=== PATIENT | female | born 1935 | race Native Hawaiian/Other Pacific Islander ===

== ENCOUNTER → 2017-01-21 | Outpatient (CLI) | payer MEDICARE, OTHER ==
[~2017-01-21] MED LIST: AMLO5 PO; ATOR20TA15 PO; COMB0.2S EACH EYE; COMB0.2S RIGHT EYE; COUM5TAB PO; DIFL0.0512 RIGHT EYE; DIGO0.25 PO; DILT31TA PO; LACTCAP8 PO; METO-309 PO
[2017-01-21 11:54] LABS: HEMATOCRIT 39.2 % (35.0-46.0); MEAN CELL VOLUME 85.6 FL (80.0-100.0); MEAN CORPUSCULAR HEMOGLOBIN 28.6 PG (27.0-34.0); MEAN CORPUSCULAR HGB CONC 33.3 % (32.0-36.0); PLATELET COUNT 170 TH/MM3 (150-450); RED BLOOD COUNT 4.57 MIL/MM3 (4.00-5.30); RED CELL DISTRIBUTION WIDTH 13.9 % (11.6-17.2); REVIEW FLAG FINAL; WHITE BLOOD COUNT 5.3 TH/MM3 (4.0-11.0)
[2017-01-21 12:09] LABS: ANION GAP 5 MEQ/L (5-15); AST (GOT) 18 U/L (15-37); BICARBONATE 28.5 MEQ/L (21.0-32.0); BLOOD UREA NITROGEN 15 MG/DL (7-18); CHLORIDE 103 MEQ/L (98-107); GLOMERULAR FILTRATION RATE 65 ML/MIN (>89); GLUCOSE,FASTING 154 MG/DL (74-99); POTASSIUM 4.5 MEQ/L (3.5-5.1); SODIUM (NA) 136 MEQ/L (136-145)
[2017-01-21 12:10] LABS: ALT (GPT) 22 U/L (10-53)
[2017-01-21 12:18] LABS: ALKALINE PHOSPHATASE 84 U/L (45-117); HDL CHOLESTEROL 47.5 MG/DL (40.0-60.0); LDL CHOLESTEROL 65 MG/DL (0-99); TOTAL BILIRUBIN ADULT 0.6 MG/DL (0.2-1.0); TRANSFERRIN IRON PROFILE 240 MG/DL (200-360)
== END ==
LOC: ELAB 08:48
PROVIDERS: ATTEND Internal Medicine
DX: I48.91 Unspecified atrial fibrillation (principal); I10 Essential (primary) hypertension; E78.5 Hyperlipidemia, unspecified; R53.83 Other fatigue
CPT/HCPCS: 36415; 80053; 80061; 83540; 83550; 84443; 85027

== ENCOUNTER 2017-02-24 20:45 | Emergency (ER) | payer MEDICARE, OTHER ==
[~2017-02-24] VITALS: Ht 154.9 cm; Wt 80.0 kg
[2017-02-24 20:48] VITALS: BP 173/87; PULSE 95; RESP 18; TEMP 98.6; O2SAT 98
--- NOTE | 2017-02-24 22:10 | PD ---
Physical Exam Date Seen by Provider: Feb 24, 2017 Time Seen by Provider: 22:08 Data Data Last Documented VS Vital Signs Date Time Temp Pulse Resp B/P (MAP) Pulse Ox O2 Delivery O2 Flow Rate FiO2 02/24/17 20:48 98.6 95 18 173/87 (115) 98 MDM Supervised Visit with JON: No Narrative Course 81 YO F with complaint of cough, congestion, SOB x 2 days. Endorses + LE edema. Denies hx CHF. ---F/C, N/V/D. Hx A fib, on Eliquis. Vitals reviewed. Patient seen in triage, awaiting bed placement. Blanche Melton Feb 24, 2017 22:10
[2017-02-24] MEDS ORDERED: DILT31TA PO (22:21)
[2017-02-24] MEDS ORDERED: APIX5TAB PO (22:21)
[2017-02-24] MEDS ORDERED: RESP: ALBUTEROL 2.5 MG/IPRATROPIUM 0.5 MG NEB (SCH) NEB ONE (22:45)
[2017-02-24] MEDS ORDERED: RESP: LIDOCAINE HCL 4% PF 5 ML NEB NEB ONE (22:45)
--- NOTE | 2017-02-24 22:56 | RADRPT ---
EXAM DATE/TIME: 02/24/2017 22:52 [facility] COMPARISON: No previous studies available for comparison. INDICATIONS : Cough and short of breath. MEDICAL HISTORY : None. SURGICAL HISTORY : None. ENCOUNTER: Initial ACUITY: 1 day PAIN SCORE: 2/10 LOCATION: Bilateral chest FINDINGS: Portable AP view of the chest demonstrates a normal-sized cardiac silhouette. No effusion, consolidat ion, or pneumothorax is visualized. The bones and soft tissues demonstrate no acute abnormality. Lung s are underinflated with mild atelectasis at the bases. There is calcification of the aorta. CONCLUSION: Underinflation with mild atelectasis the lung bases. Otherwise, no acute finding is identified. Joshua Petit MD on February 24, 2017 at 22:54 Board Certified Radiologist. This report was verified electronically.
--- NOTE | 2017-02-24 22:59 | PD ---
HPI Chief Complaint: Cold / Flu Symptoms Time Seen by Provider: 22:40 Travel History International Travel<30 days: No Contact w/Intl Traveler<30days: No Traveled to known affect area: No History of Present Illness HPI The patient is a 81-year-old female who presents to the emergency department with a family member for cough. The patient has a 2 day history of cough which is mostly dry, nonproductive, but at times severe according to family. The daughter states it appeared the patient was going to pass out from being unable to breathe secondary to her cough. Patient does have a history of similar cough in the past, and she has been evaluated by her cannon crewmember. The patient was placed on previous inhalers including Breo and Ventolin. The patient does have a history of atrial fibrillation and is currently treated with Cardizem and Eliquis, she denies any history congestive heart failure. She does endorse mild bilateral lower extremity edema, was placed back on Lasix 1 week ago by her bounty hunter, Dr. Haro. The patient's symptoms are moderate, she denies any significant shortness of breath or chest pain with her dry nonproductive cough. She denies taking any Lev inhibitors. PFSH Past Medical History Atrial Fibrillation: Yes Hypertension: Yes Immunizations Current: Yes ?: Not Past Surgical History Genitourinary Surgery: Yes (BLADDER PROLAPSE) Hysterectomy: Yes Social History Alcohol Use: No Tobacco Use: No Substance Use: No Allergies-Medications (Allergen,Severity, Reaction): Coded Allergies: penicillin G (Unverified Allergy, Mild, 02/18/17) Reported Meds & Prescriptions Reported Meds & Active Scripts Active Reported Eliquis (Apixaban) 5 Mg Tab 10 Mg PO BID Cardizem (Diltiazem HCl) 30 Mg Tab 20 Mg PO TID Combigan Opth Drops (Brimonidine-Timolol Opth Drops) 0.2-0.5% Soln 1 Drop RIGHT EYE Q12HR Durezol Opth (Difluprednate Opth) 0.05% Emul 1 Drop RIGHT EYE QID Probiotic (Lactobacillus Acidophilus) 1 Cap Cap 1 Cap PO DAILY Digoxin 0.25 Mg Tab 0.25 Mg PO DAILY Cardizem (Diltiazem HCl) 30 Mg Tab 30 Mg PO DAILY Review of Systems Except as stated in HPI: all other systems reviewed are Neg General / Constitutional: No: Fever HENT: No: Lightheadedness Cardiovascular: No: Chest Pain or Discomfort Respiratory: Positive: Cough, No: Shortness of Breath Gastrointestinal: No: Nausea, Vomiting Musculoskeletal: Positive: Edema Physical Exam Narrative GENERAL: Awake, alert, pleasant 81-year-old female who appears her stated age and is in no acute respiratory distress. SKIN: Focused skin assessment warm/dry. HEAD: Atraumatic. Normocephalic. EYES: Pupils equal and round. No scleral icterus. No injection or drainage. ENT: No nasal bleeding or discharge. Mucous membranes pink and moist. No significant erythema noted. NECK: Trachea midline. No JVD. CARDIOVASCULAR: Irregularly irregular with a heart rate in the 80s. No audible murmur. RESPIRATORY: No accessory muscle use. Minimal crackles in the right base. GASTROINTESTINAL: Abdomen soft, non-tender, nondistended. No rebound tenderness. MUSCULOSKELETAL: No obvious deformities. No clubbing. No cyanosis. Trace lower extremity edema. NEUROLOGICAL: Awake and alert. No obvious cranial nerve deficits. Motor grossly within normal limits. Normal speech. PSYCHIATRIC: Appropriate mood and affect; insight and judgment normal. Data Data Last Documented VS Vital Signs Date Time Temp Pulse Resp B/P (MAP) Pulse Ox O2 Delivery O2 Flow Rate FiO2 02/24/17 23:23 99.2 105 14 157/79 (105) 98 Room Air Orders Orders Electrocardiogram (02/24/17 22:16) Basic Metabolic Panel (Bmp) (02/24/17 22:16) B-Type Natriuretic Peptide (02/24/17 22:16) Ckmb (Isoenzyme) Profile (02/24/17 22:16) Complete Blood Count With Diff (02/24/17 22:16) Magnesium (Mg) (02/24/17 22:16) Prothrombin Time / Inr (Pt) (02/24/17 22:16) Act Partial Throm Time (Ptt) (02/24/17 22:16) Troponin I (02/24/17 22:16) Chest, Single Ap (02/24/17 22:16) Ecg Monitoring (02/24/17 22:16) Bilateral Bp Monitoring (02/24/17 22:16) Iv Access Insert/Monitor (02/24/17 22:16) Oximetry (02/24/17 22:16) Oxygen Administration (02/24/17 22:16) Albuterol-Ipratropium Neb (Duoneb Neb) (02/24/17 22:45) Lidocaine Pf 4% Neb (Lidocaine Pf 4% Neb (02/24/17 22:45) Influenzae A/B Antigen (02/24/17 23:35) Digoxin (02/24/17 23:50) Labs Laboratory Tests Test 02/24/17 23:50 White Blood Count 9.8 TH/MM3 Red Blood Count 4.90 MIL/MM3 Hemoglobin 13.4 GM/DL Hematocrit 41.8 % Mean Corpuscular Volume 85.3 FL Mean Corpuscular Hemoglobin 27.3 PG Mean Corpuscular Hemoglobin Concent 32.1 % Red Cell Distribution Width 14.0 % Platelet Count 175 TH/MM3 Mean Platelet Volume 8.2 FL Neutrophils (%) (Auto) 67.9 % Lymphocytes (%) (Auto) 22.9 % Monocytes (%) (Auto) 8.0 % Eosinophils (%) (Auto) 0.5 % Basophils (%) (Auto) 0.7 % Neutrophils # (Auto) 6.7 TH/MM3 Lymphocytes # (Auto) 2.3 TH/MM3 Monocytes # (Auto) 0.8 TH/MM3 Eosinophils # (Auto) 0.1 TH/MM3 Basophils # (Auto) 0.1 TH/MM3 CBC Comment DIFF FINAL Differential Comment Prothrombin Time 11.1 SEC Prothromb Time International Ratio 1.0 RATIO Activated Partial Thromboplast Time 27.2 SEC Blood Urea Nitrogen 8 MG/DL Creatinine 0.80 MG/DL Random Glucose 185 MG/DL Calcium Level 9.4 MG/DL Magnesium Level 2.0 MG/DL Sodium Level 137 MEQ/L Potassium Level 3.9 MEQ/L Chloride Level 99 MEQ/L Carbon Dioxide Level 31.2 MEQ/L Anion Gap 7 MEQ/L Estimat Glomerular Filtration Rate 69 ML/MIN Total Creatine Kinase 99 U/L Troponin I LESS THAN 0.02 NG/ML B-Type Natriuretic Peptide 349 PG/ML Digoxin Level 0.7 NG/ML [facility] Medical Decision Making Medical Screen Exam Complete: Yes Emergency Medical Condition: Yes Medical Record Reviewed: Yes Interpretation(s) Chest x-ray reveals mild under inflation, question of atelectasis at the bases, otherwise no acute findings. EKG reveals atrial fibrillation with RVR, rate 108. Nonspecific T wave changes. Laboratory Tests Test 02/24/17 23:50 White Blood Count 9.8 TH/MM3 Red Blood Count 4.90 MIL/MM3 Hemoglobin 13.4 GM/DL Hematocrit 41.8 % Mean Corpuscular Volume 85.3 FL Mean Corpuscular Hemoglobin 27.3 PG Mean Corpuscular Hemoglobin Concent 32.1 % Red Cell Distribution Width 14.0 % Platelet Count 175 TH/MM3 Mean Platelet Volume 8.2 FL Neutrophils (%) (Auto) 67.9 % Lymphocytes (%) (Auto) 22.9 % Monocytes (%) (Auto) 8.0 % Eosinophils (%) (Auto) 0.5 % Basophils (%) (Auto) 0.7 % Neutrophils # (Auto) 6.7 TH/MM3 Lymphocytes # (Auto) 2.3 TH/MM3 Monocytes # (Auto) 0.8 TH/MM3 Eosinophils # (Auto) 0.1 TH/MM3 Basophils # (Auto) 0.1 TH/MM3 CBC Comment DIFF FINAL Differential Comment Prothrombin Time 11.1 SEC Prothromb Time International Ratio 1.0 RATIO Activated Partial Thromboplast Time 27.2 SEC Blood Urea Nitrogen 8 MG/DL Creatinine 0.80 MG/DL Random Glucose 185 MG/DL Calcium Level 9.4 MG/DL Magnesium Level 2.0 MG/DL Sodium Level 137 MEQ/L Potassium Level 3.9 MEQ/L Chloride Level 99 MEQ/L Carbon Dioxide Level 31.2 MEQ/L Anion Gap 7 MEQ/L Estimat Glomerular Filtration Rate 69 ML/MIN Total Creatine Kinase 99 U/L Troponin I LESS THAN 0.02 NG/ML B-Type Natriuretic Peptide 349 PG/ML Digoxin Level 0.7 NG/ML Differential Diagnosis Differential diagnosis includes congestive heart failure, bronchitis, postnasal drip, GERD, pulmonary edema, pneumonia, medication side effect. Narrative Course IV was established, labs were drawn and sent, and the patient was placed on cardiac telemetry monitoring and continuous pulse oximetry monitoring. EKG was ordered and interpreted. Chest x-ray was obtained. The patient was administered DuoNeb with respiratory lidocaine for symptomatic relief. The patient's chest x-rays unremarkable except for mild atelectasis. BNP is elevated at 349, troponin is negative. The patient may have mild congestive heart failure, I will place her back on Lasix and potassium, she is advised to wear LEON hose and follow up with her primary physician and bounty hunter. I will write Phenergan with codeine as needed for cough. Diagnosis Primary Impression: Cough Additional Impression: Congestive heart failure Qualified Codes: I50.9 - Heart failure, unspecified Patient Instructions: General Instructions Additional Instructions: Please provide the patient a copy of her chest x-ray results, EKG results, and lab results at discharge. Medications as directed. Elevate legs, wear LEON hose , follow-up with her primary physician. Return if symptoms worsen or progress. Med/Other Pt SpecificInfo: Prescription(s) given Scripts Codeine-Chlorpheniramine ER Liq 12 HR (Tuzistra Xr Liq 12 HR) 14.7-2.8 Mg/5 Ml Susp 10 ML PO Q12H for Chest Congestion/Cough, #240 ML 0 Refills Prov: Nabil Solis MD 02/25/17 Potassium Chloride ER (Potassium Chloride ER) 10 Meq Tab 10 MEQ PO DAILY for Electrolyte Replacement, #14 TAB 0 Refills Prov: Nabil Solis MD 02/25/17 Furosemide (Lasix) 20 Mg Tab 20 MG PO DAILY for 14 Days, #14 TAB 0 Refills Prov: Nabil Solis MD 02/25/17 Disposition: 01 DISCHARGE HOME Condition: Stable Nabil Solis MD Feb 24, 2017 22:59
[2017-02-24 23:22] VITALS: RESP 14; O2SAT 97
[2017-02-24 23:23] VITALS: BP 157/79; PULSE 105; RESP 14; TEMP 99.2; O2SAT 98
[2017-02-25 00:10] LABS: AUTOMATED NEUTROPHIL # 6.7 TH/MM3 (1.8-7.7); BASOPHIL # 0.1 TH/MM3 (0-0.2); BASOPHIL % 0.7 % (0.0-2.0); EOSINOPHIL # 0.1 TH/MM3 (0-0.4); EOSINOPHIL % 0.5 % (0.0-4.0); HEMATOCRIT 41.8 % (35.0-46.0); HEMO FLAGS DIFF FINAL; LYMPH % 22.9 % (9.0-44.0); LYMPHOCYTE # 2.3 TH/MM3 (1.0-4.8); MEAN CELL VOLUME 85.3 FL (80.0-100.0); MEAN CORPUSCULAR HEMOGLOBIN 27.3 PG (27.0-34.0); MEAN CORPUSCULAR HGB CONC 32.1 % (32.0-36.0); NEUT % 67.9 % (16.0-70.0); PLATELET COUNT 175 TH/MM3 (150-450); WHITE BLOOD COUNT 9.8 TH/MM3 (4.0-11.0)
[2017-02-25 00:22] LABS: APTT (PATIENT) 27.2 SEC (24.3-30.1); PROTHROMBIN TIME - PATIENT 11.1 SEC (9.8-11.6)
[2017-02-25 00:44] LABS: DIGOXIN 0.7 NG/ML (0.8-2.0)
[2017-02-25 00:45] LABS: ANION GAP 7 MEQ/L (5-15); BICARBONATE 31.2 MEQ/L (21.0-32.0); BLOOD UREA NITROGEN 8 MG/DL (7-18); CHLORIDE 99 MEQ/L (98-107); CREATINE KINASE 99 U/L (26-192); GLOMERULAR FILTRATION RATE 69 ML/MIN (>89); POTASSIUM 3.9 MEQ/L (3.5-5.1); SODIUM (NA) 137 MEQ/L (136-145)
[2017-02-25] MEDS ORDERED: POTA10TA2 PO (01:14)
[2017-02-25] MEDS ORDERED: CODE1SUS PO (01:14)
[2017-02-25] MEDS ORDERED: FURO1TAB62 PO (01:14)
[2017-02-25] MEDS ORDERED: PROMETHAZINE/CODEINE 6.25 MG/10 MG/5 ML CUP PO ONE (01:30)
[2017-02-25 01:38] VITALS: BP 152/94; PULSE 97; RESP 18; O2SAT 99
--- NOTE | 2017-02-25 19:42 | EKG ---
Date Performed: 02/24/2017 Time Performed: 23:19:07 PTAGE: 81 years EKG: ATRIAL FIBRILLATION WITH RAPID VENTRICULAR RESPONSE NONSPECIFIC ST & T-WAVE ABNORMALITY ABN ORMAL ECG NO PREVIOUS TRACING DOCTOR: Andrew De La Torre Interpretating Date/Time 02/25/2017 19:41:01
== END 2017-02-25 01:50 | disposition home or self-care (01) ==
LOC: NEPE 20:45
DX: I50.9 Heart failure, unspecified (principal); I10 Essential (primary) hypertension; I48.91 Unspecified atrial fibrillation
CPT/HCPCS: 71010; 80048; 80162; 82550; 83735; 83880; 84484; 85025; 85610; 85730; 87804; 93005; 94640; 94664; 99285